=== PATIENT | female | born 1975 | race Caucasian/White ===

== ENCOUNTER 2017-10-06 17:35 | Emergency (ER) | payer BC, SELFPAY | END 2017-10-06 19:02 | disposition home or self-care (01) | PROVIDERS: Family Provider Physician Assistant | DX: G50.0 Trigeminal neuralgia (principal); Z88.2 Allergy status to sulfonamides; Z79.51 Long term (current) use of inhaled steroids; Z79.899 Other long term (current) drug therapy; Z86.73 Personal history of transient ischemic attack (TIA), and cerebral infarction without residual deficits | CPT/HCPCS: 99201 ==

== ENCOUNTER 2017-10-28 09:29 | Emergency (ER) | payer BC, SELFPAY ==
[2017-10-28 09:53] VITALS: BMI 25.0
[2017-10-28 10:08] VITALS: BP 107/73; PULSE 102; RESP 18; TEMP 36.9; O2SAT 97; BMI 55.0
[2017-10-28 10:08] LABS: UTC Influenza A Antigen Negative (Negative); UTC Influenza B Antigen Positive (Negative)
--- NOTE | 2017-10-28 10:26 | HMH.EDUTC ---
[facility] [place] Clinical Impression: Influenza B Disposition: Home, Self-Care Condition on Discharge: Good Instructions: Influenza Additional Instructions: Rest, fluids. Alternate Tylenol and Motrin as needed for fever. Referrals: Talisha Corbett PA [Primary Care Provider] - Time of Disposition: 10:30 Medical Decision Making Vital Signs: 10/28/17 10:08 Temperature 98.5 F Temperature Source Oral Pulse Rate [Left Brachial] 102 H Respiratory Rate 18 Blood Pressure [Right Arm] 107/73 Blood Pressure Mean [Right Arm] 84 Blood Pressure Source [Right Arm] Automatic Cuff Blood Pressure Position [Right Arm] Sitting 02 Sat by Pulse Oximetry 97 Oxygen Delivery Method Room Air - Lab Data Lab results reviewed: Yes: I reviewed the patient's lab results. Lab Results 10/28/17 10:00: Influenza Type A Ag Negative, Influenza Type B Ag Positive A - Bobby Inquiry Pt receiving controlled substance: No [facility] [place] - General Stated complaint: cough,ears hurting,davis Time Seen by Provider: 10/28/17 10:21 Mode of Arrival: Ambulatory Source of Information: Patient Limitations: No Limitations Description of Symptoms (Recalled from Triage Doc. by RN): Flu like symptoms, cough, runny nose, tired X 2 days. No vomiting or diarrhea. HEENT Symptoms (Recalled from RN notes): Yes (runny nose, drainage, headache) Resp Symptoms (Recalled from RN notes): Yes (cough) Skin Symptoms (Recalled from RN notes): No MS Symptoms (Recalled from RN notes): No Functional Status (Recalled from RN notes): na - Related Data Home Medications Medication Instructions Recorded Confirmed aspirin 81 mg tablet,delayed 81 mg PO QDAY 10/23/17 release atorvastatin 20 mg tablet 20 mg PO QDAY 10/23/17 puenrqcnap-pqwnmzgoahcwi-flcganrl 1 cap PO Q4H PRN cap 10/23/17 50 mg-300 mg-40 mg capsule fluticasone 50 mcg/actuation nasal 50 mcg INTRANASAL ONCE 10/23/17 spray,suspension levonorgestrel-ethinyl estradiol 1 tab PO QDAY 10/23/17 0.1 mg-20 mcg tablet montelukast 10 mg tablet 10 mg PO QHS 10/23/17 ondansetron 8 mg disintegrating 8 mg PO Q12H PRN 10/23/17 tablet pregabalin 75 mg capsule 75 mg PO BID 10/23/17 zolpidem 10 mg tablet 10 mg PO QHS PRN tab 10/23/17 Previous Rx's Medication Instructions Recorded Oseltamivir Phosphate [Tamiflu 75 mg PO BID 5 Days #10 cap 10/28/17 75mg Capsule] Promethazine/Dextromethorphan 5 ml PO Q6HP PRN 10 Days #180 syrup 10/28/17 [Promethazine-Dm Syrup] Allergies Allergy/AdvReac Type Severity Reaction Status Date / Time Sulfa (Sulfonamide Allergy Unknown Verified 10/28/17 09:55 Antibiotics) [SULFA (SULFONAMIDE ANTIBIOTICS)] - Worker's Comp Is this a Worker's Comp case?: No [facility] History Medical History: Denies:: Cancer, Diabetes Mellitus Type 1, Diabetes Mellitus Type 2, MRSA Comment: Possible stroke 08/2017 (versus Trigeminal neuralgia); B12 deficiency Other Surgeries: Yes: Appendectomy Amputation: No Fractures: No - *Social History Smoking Status: Never smoker Alcohol Intake: never Substance Use Type: denies use Occupational Status: employed Housing: house Household Members: family - Psychiatric History Expresses thoughts of harming self/others: None Suicide Plan Description: No Plan *Family Hx:: Anemia - Constitutional Reports body ache(s), Reports fever(s), Reports headache(s) - ENT Reports ear pain, Reports sore throat - Respiratory Reports chest congestion, Reports cough Physical Exam - General General appearance: alert, in no apparent distress - Head Head exam: atraumatic, normocephalic, normal inspection - Eye Eye exam: Present: normal appearance, PERRL, EOMI - ENT ENT exam: Present: normal exam, normal oropharynx, mucous membranes moist, TM's normal bilaterally, normal external ear exam - Neck Neck exam: Present: normal inspection, full ROM, trachea midline. Absent: meningismus, lymphadenopathy
--- NOTE | 2017-10-28 10:30 | ED_ITS ---
[facility] [place] Impression: Influenza B Disposition: Home, Self-Care Condition on Discharge: Good Instructions: Influenza Additional Instructions: Rest, fluids. Alternate Tylenol and Motrin as needed for fever. Referrals: Talisha Corbett PA [Primary Care Provider] - Time of Disposition: 10:30 Medical Decision Making Vital Signs: 10/28/17 10:08 Temperature 98.5 F Temperature Source Oral Pulse Rate [Left Brachial] 102 H Respiratory Rate 18 Blood Pressure [Right Arm] 107/73 Blood Pressure Mean [Right Arm] 84 Blood Pressure Source [Right Arm] Automatic Cuff Blood Pressure Position [Right Arm] Sitting 02 Sat by Pulse Oximetry 97 Oxygen Delivery Method Room Air - Lab Data Lab results reviewed: Yes: I reviewed the patient's lab results. Lab Results 10/28/17 10:00: Influenza Type A Ag Negative, Influenza Type B Ag Positive A - Bobby Inquiry Pt receiving controlled substance: No [facility] [place] - General Stated complaint: cough,ears hurting,davis Time Seen by Provider: 10/28/17 10:21 Mode of Arrival: Ambulatory Source of Information: Patient Limitations: No Limitations Description of Symptoms (Recalled from Triage Doc. by RN): Flu like symptoms, cough, runny nose, tired X 2 days. No vomiting or diarrhea. HEENT Symptoms (Recalled from RN notes): Yes (runny nose, drainage, headache) Resp Symptoms (Recalled from RN notes): Yes (cough) Skin Symptoms (Recalled from RN notes): No MS Symptoms (Recalled from RN notes): No Functional Status (Recalled from RN notes): na - Related Data Home Medications Medication Instructions Recorded Confirmed aspirin 81 mg tablet,delayed 81 mg PO QDAY 10/23/17 release atorvastatin 20 mg tablet 20 mg PO QDAY 10/23/17 pozwxltwry-uzkiprtarrieh-nqiqcstk 1 cap PO Q4H PRN cap 10/23/17 50 mg-300 mg-40 mg capsule fluticasone 50 mcg/actuation nasal 50 mcg INTRANASAL ONCE 10/23/17 spray,suspension levonorgestrel-ethinyl estradiol 1 tab PO QDAY 10/23/17 0.1 mg-20 mcg tablet montelukast 10 mg tablet 10 mg PO QHS 10/23/17 ondansetron 8 mg disintegrating 8 mg PO Q12H PRN 10/23/17 tablet pregabalin 75 mg capsule 75 mg PO BID 10/23/17 zolpidem 10 mg tablet 10 mg PO QHS PRN tab 10/23/17 Previous Rx's Medication Instructions Recorded Oseltamivir Phosphate [Tamiflu 75 mg PO BID 5 Days #10 cap 10/28/17 75mg Capsule] Promethazine/Dextromethorphan 5 ml PO Q6HP PRN 10 Days #180 syrup 10/28/17 [Promethazine-Dm Syrup] Allergies Allergy/AdvReac Type Severity Reaction Status Date / Time Sulfa (Sulfonamide Allergy Unknown Verified 10/28/17 09:55 Antibiotics) [SULFA (SULFONAMIDE ANTIBIOTICS)] - Worker's Comp Is this a Worker's Comp case?: No [facility] History Medical History: Denies:: Cancer, Diabetes Mellitus Type 1, Diabetes Mellitus Type 2, MRSA Comment: Possible stroke 08/2017 (versus Trigeminal neuralgia); B12 deficiency Other Surgeries: Yes: Appendectomy Amputation: No Fractures: No - *Social History Smoking Status: Never smoker Alcohol Intake: never Substance Use Type: denies use Occupational Status: employed Housing: house Household Members: family - Psych
== END 2017-10-28 10:34 | disposition home or self-care (01) ==
PROVIDERS: Emergency Provider Physician Assistant; Family Provider Physician Assistant; PCP Physician Assistant
DX: J11.1 Influenza due to unidentified influenza virus with other respiratory manifestations (principal); Z79.82 Long term (current) use of aspirin; Z88.2 Allergy status to sulfonamides; E53.9 Vitamin B deficiency, unspecified
CPT/HCPCS: 87276; 87804; 99202

== ENCOUNTER → 2017-11-06 12:42 | Outpatient (REF) | payer BC, SELFPAY ==
[2017-11-06 17:09] LABS: Basophils % 0.5 % (0.1-2.0); Eosinophils # 0.1 K/mm3 (0.0-0.4); Eosinophils % 1.1 % (0.1-12.0); Hematocrit 40.5 % (37.0-47.0); Lymphocytes # 1.7 K/mm3 (0.7-4.5); Mean Corpuscular Volume 96.7 fl (81-99); Mean Platelet Volume 8.8 fl (7.4-10.4); Monocytes # 0.5 K/mm3 (0.1-1.0); Monocytes % 6.5 % (1.7-9.3); Neutrophils # 4.8 K/mm3 (1.8-7.8); Neutrophils % 67.8 % (37.0-80.0); Platelet Count 382 K/mm3 (142-424); Red Blood Count 4.18 M/mm3 (4.20-5.40); Red Cell Distribution Width 12.7 % (11.5-17.5); White Blood Count 7.1 K/mm3 (4.8-10.8)
[2017-11-06 18:01] LABS: Alanine Aminotransferase 30 U/L (12-78); Albumin Level 3.9 gm/dL (3.4-5.0); Albumin/Globulin Ratio 1.4 (1.1-1.8); Alkaline Phosphatase 101 U/L (46-116); Anion Gap 12.1 mEq/L (5-15); Aspartate Amino Transferase 19 U/L (15-37); Bilirubin,Total 0.4 mg/dL (0.2-1.0); Blood Urea Nitrogen 11 mg/dL (7-18); Calcium 8.9 mg/dL (8.5-10.1); Carbon Dioxide 26 mmol/L (21.0-32.0); Chloride 106 mmol/L (98-107); Creatinine,Serum 0.76 mg/dL (0.55-1.02); Estimated Glomerular Filt Rate 83 ml/min (>60); Ferritin 125 ng/mL (8-388); GFR (African American) 101 ML/MIN (>60); Globulin 2.8 gm/dl (1.3-3.2); Glucose 85 mg/dL (74-106); Potassium 4.1 mmoL/L (3.5-5.1); Sodium 140 mmol/L (136-145); Thyroid Stimulating Hormone 0.96 uIU/ml (0.358-3.740); Total Protein,Serum 6.7 gm/dL (6.4-8.2)
[2017-11-08 08:21] LABS: Iron 135 ug/dL (27-159); Iron Saturation 41 % (15-55); UIBC 194 ug/dL (131-425)
[2017-11-08 12:16] LABS: Folate 9.9 ng/mL (>3.0); Vitamin B12 1334 pg/mL (232-1245); Vitamin D 25 Hydroxy 35.3 ng/mL (30.0-100.0)
== END ==
LOC: LAB 12:42
PROVIDERS: Visit Provider Physician Assistant
DX: R20.0 Anesthesia of skin (principal); R41.3 Other amnesia; G50.0 Trigeminal neuralgia; R53.1 Weakness; R13.10 Dysphagia, unspecified
CPT/HCPCS: 80053; 82607; 82652; 82728; 82746; 83550; 84443; 85025

== ENCOUNTER → 2019-05-19 13:41 | Outpatient (CLI) | payer BC, SELFPAY ==
[2019-05-19 14:00] LABS: Basophils % 0.6 % (0.1-2.0); Eosinophils # 0.1 K/mm3 (0.0-0.4); Eosinophils % 1.4 % (0.1-12.0); Hematocrit 40.7 % (37.0-47.0); Hemoglobin 12.8 g/dL (12.2-16.2); Lymphocytes # 1.7 K/mm3 (0.7-4.5); Lymphocytes % 25.2 % (10-50); Mean Corpuscular HGB Conc 31.5 g/dL (31.8-35.4); Mean Corpuscular Hemoglobin 31.9 pg (27.0-31.2); Mean Corpuscular Volume 101.4 fl (81-99); Monocytes # 0.5 K/mm3 (0.1-1.0); Monocytes % 7.6 % (1.7-9.3); Neutrophils # 4.5 K/mm3 (1.8-7.8); Neutrophils % 65.1 % (37.0-80.0); Platelet Count 371 K/mm3 (142-424); Red Blood Count 4.02 M/mm3 (4.20-5.40); Red Cell Distribution Width 12.8 % (11.5-17.5); White Blood Count 6.9 K/mm3 (4.8-10.8)
[2019-05-19 14:16] LABS: Alanine Aminotransferase 23 U/L (12-78); Albumin Level 3.7 gm/dL (3.4-5.0); Albumin/Globulin Ratio 1.2 (1.1-1.8); Alkaline Phosphatase 85 U/L (46-116); Anion Gap 12.8 mEq/L (5-15); Aspartate Amino Transferase 13 U/L (15-37); Bilirubin,Total 0.3 mg/dL (0.2-1.0); Blood Urea Nitrogen 12 mg/dL (7-18); Calcium 9.6 mg/dL (8.5-10.1); Carbon Dioxide 27 mmol/L (21.0-32.0); Chloride 105 mmol/L (98-107); Chol/HDL Ratio 3.2 (1-3.5); Cholesterol 168 mg/dL (140-200); Creatinine,Serum 0.73 mg/dL (0.55-1.02); Estimated Glomerular Filt Rate 87 ml/min (>60); Free T4 (Free Thyroxine) 0.91 ng/dl (0.76-1.46); GFR (African American) 105 ML/MIN (>60); Glucose 86 mg/dL (74-106); HDL Cholesterol 53 mg/dL (29-89); LDL Cholesterol 91 mg/dL (0-130); Potassium 3.8 mmoL/L (3.5-5.1); Sodium 141 mmol/L (136-145); Thyroid Stimulating Hormone 1.38 uIU/ml (0.358-3.740); Total Protein,Serum 6.7 gm/dL (6.4-8.2); Triglycerides 121 mg/dL (30-200); VLDL Cholesterol 24 mg/dL (0-40)
[2019-05-21 14:19] LABS: Vitamin B12 >2000 pg/mL (232-1245); Vitamin D 25 Hydroxy 42.7 ng/mL (30.0-100.0)
== END ==
PROVIDERS: Visit Provider Emergency Medicine
DX: R53.1 Weakness (principal)
CPT/HCPCS: 80053; 80061; 82607; 82652; 84439; 84443; 85025

== ENCOUNTER → 2019-06-04 16:07 | Outpatient (CLI) | payer BC, SELFPAY ==
[2019-06-06 16:10] LABS: Peripheral Smear Review Scanned Result
== END ==
PROVIDERS: Visit Provider Emergency Medicine
DX: R71.8 Other abnormality of red blood cells (principal)
CPT/HCPCS: 36415

== ENCOUNTER → 2019-06-30 12:25 | Outpatient (CLI) | payer OTHER, BC, SELFPAY ==
--- NOTE | 2019-06-30 12:28 | XR_ITS ---
PROCEDURE: XR SHOULDER RT MIN 2V CLINICAL INDICATION: Shoulder pain COMPARISON: No exams were available for comparison FINDINGS: No fracture, dislocation, lytic change, or blastic change evident. No significant degenerative change IMPRESSION: Negative right shoulder Dictated by: Timmy Leach MD 06/30/2019 13:02 Electronically signed by Timmy Leach MD in [place] 06/30/2019 13:02
--- NOTE | 2019-06-30 12:28 | XR_ITS ---
PROCEDURE: XR ELBOW RT MIN 3V CLINICAL INDICATION: ELbow pain COMPARISON: No exams were available for comparison FINDINGS: No fracture or dislocation. No lytic or blastic change. There is normal mineralization. The joint spaces are well-preserved. No significant degenerative/arthritic changes. No erosive changes evident. Other findings:None. IMPRESSION: No acute findings. Dictated by: Timmy Leach MD 06/30/2019 15:02 Electronically signed by Timmy Leach MD in [place] 06/30/2019 15:02
--- NOTE | 2019-06-30 14:10 | XR_ITS ---
PROCEDURE: XR SOFT TISSUE NECK CLINICAL INDICATION: Neck pain COMPARISON: No exams were available for comparison FINDINGS: There is degenerative disc disease at C5-C6 and C6-C7. Normal alignment. Mild cervical curvature convex right. No obvious fracture or dislocation. Straightening of cervical lordosis. IMPRESSION: Straightened cervical lordosis with mild cervical curvature convex right which could be due to patient position or muscle spasm. Degenerative disc disease at C5-C6 and C6-C7 Dictated by: Timmy Leach MD 06/30/2019 14:44 Electronically signed by Timmy Leach MD in [place] 06/30/2019 14:44
== END ==
PROVIDERS: PCP Family Medicine; Visit Provider Orthopaedic Surgery
DX: M25.521 Pain in right elbow (principal); M25.511 Pain in right shoulder; M54.2 Cervicalgia
CPT/HCPCS: 70360; 73030; 73080

== ENCOUNTER → 2019-07-14 07:52 | Outpatient (CLI) | payer BC, SELFPAY ==
--- NOTE | 2019-07-14 07:53 | MR_ITS ---
PROCEDURE: MR CERVICAL SPINE WO CON CLINICAL INDICATION: Neck Pain Neck pain, right shoulder and arm pain with numbness and tingling COMPARISON: No exams were available for comparison TECHNIQUE: Standard multiplanar multiecho sequences are performed without contrast. FINDINGS: There is straightening of the cervical lordosis. The cranial cervical junction has an unremarkable appearance. C2-C3: Unremarkable. C3-C4: Unremarkable. C4-C5: Unremarkable. C5-C6: There is mild degenerative disc disease with minimal bulging disc. There is minimal left foraminal disc protrusion at this area causing mild left lateral recess and foraminal narrowing. Borderline narrowing of the canal at 11 mm. There is mild right-sided foraminal narrowing as well at this level C6-C7: Mild degenerative disc disease with mild bulging disc which is eccentric toward the right causing moderate right-sided foraminal and mild right lateral recess narrowing. There is borderline narrowing of the canal at 11 mm C7-T1: Unremarkable. No extruded herniated disc are evident. IMPRESSION: C5-C6: There is mild degenerative disc disease with minimal bulging disc. There is minimal left foraminal disc protrusion at this area causing mild left lateral recess and foraminal narrowing. Borderline narrowing of the canal at 11 mm. There is mild right-sided foraminal narrowing as well at this level C6-C7: Mild degenerative disc disease with mild bulging disc which is eccentric toward the right causing moderate right-sided foraminal and mild right lateral recess narrowing. There is borderline narrowing of the canal at 11 mm No extruded herniated disc apparent. Dictated by: Timmy Leach MD 07/15/2019 11:03 Electronically signed by Timmy Leach MD in [place] 07/15/2019 11:03
== END ==
PROVIDERS: PCP Family Medicine; Visit Provider Orthopaedic Surgery
DX: M54.2 Cervicalgia (principal)
CPT/HCPCS: 72141; 76376

== ENCOUNTER → 2020-01-12 10:25 | Outpatient (CLI) | payer BC, SELFPAY ==
--- NOTE | 2020-01-12 10:32 | XR_ITS ---
PROCEDURE: XR FOOT WT BEARING LT 3V CLINICAL INDICATION: bunion pain COMPARISON: FTR3 FOOT-RT-3 VIEWS from 09/01/2014 XR FOOT WT BEARING RT 3V from 01/12/2020 FINDINGS: No fracture or dislocation. No lytic or blastic change. There is normal mineralization. There is mild hallux valgus with mild bunion formation and osteoarthritis of the 1st MTP. No fracture or dislocation. No lytic or blastic change. A well-circumscribed lucency is present in the mid to anterior aspect of the calcaneus. This measures 1.7 cm consistent with an intraosseous lipoma. Other findings:None. IMPRESSION: 1. Mild hallux valgus with bunion formation and osteoarthritis of the 1st MTP 2. Incidental intraosseous lipoma of the calcaneus Dictated by: Timmy Leach MD 01/12/2020 11:04 Electronically signed by Timmy Leach MD in [place] 01/12/2020 11:04
--- NOTE | 2020-01-12 10:32 | XR_ITS ---
PROCEDURE: XR FOOT WT BEARING RT 3V CLINICAL INDICATION: bunion pain COMPARISON: FTR3 FOOT-RT-3 VIEWS from 09/01/2014 FINDINGS: Hallux valgus with osteoarthritis and bunion formation at the 1st MTP no other significant anomalies are evident. The joint spaces are well-preserved. No significant degenerative/arthritic changes. No erosive changes evident. Other findings:None. IMPRESSION: Hallux valgus with osteoarthritis and bunion formation at the 1st MTP which has progressed since 09/01/2014 Dictated by: Timmy Leach MD 01/12/2020 11:00 Electronically signed by Timmy Leach MD in [place] 01/12/2020 11:00
== END ==
PROVIDERS: PCP Emergency Medicine; Visit Provider Podiatrist
DX: M79.672 Pain in left foot (principal); M79.671 Pain in right foot
CPT/HCPCS: 73630

== ENCOUNTER → 2020-07-28 19:39 | Outpatient (CLI) | payer BC, SELFPAY ==
[2020-07-28 19:56] LABS: Basophils # 0.1 K/mm3 (0-0.2); Basophils % 0.9 % (0.1-2.0); Eosinophils # 0.2 K/mm3 (0.0-0.4); Eosinophils % 2.6 % (0.1-12.0); Hematocrit 45.6 % (37.0-47.0); Hemoglobin 14.8 g/dL (12.2-16.2); Lymphocytes # 2.3 K/mm3 (0.7-4.5); Lymphocytes % 27.5 % (10-50); Mean Corpuscular HGB Conc 32.5 g/dL (31.8-35.4); Mean Corpuscular Hemoglobin 32.6 pg (27.0-31.2); Mean Corpuscular Volume 100.4 fl (81-99); Mean Platelet Volume 7.6 fl (7.4-10.4); Monocytes # 0.5 K/mm3 (0.1-1.0); Monocytes % 6.3 % (1.7-9.3); Neutrophils # 5.3 K/mm3 (1.8-7.8); Neutrophils % 62.7 % (37.0-80.0); Platelet Count 429 K/mm3 (142-424); Red Blood Count 4.54 M/mm3 (4.20-5.40); Red Cell Distribution Width 12.4 % (11.5-17.5); White Blood Count 8.4 K/mm3 (4.8-10.8)
[2020-07-28 20:06] LABS: Chloride 102 mmol/L (98-107); Sodium 138 mmol/L (136-145)
[2020-07-28 20:07] LABS: Potassium 4.2 mmoL/L (3.5-5.1)
[2020-07-28 20:09] LABS: Alanine Aminotransferase 33 U/L (12-78); Albumin Level 4.7 g/dl (3.5-5.0); Albumin/Globulin Ratio 1.7 (1.1-1.8); Alkaline Phosphatase 108 U/L (38-126); Anion Gap 14.2 mEq/L (5-15); Aspartate Amino Transferase 36 U/L (14-36); Bilirubin,Total 0.5 mg/dl (0.2-1.3); Blood Urea Nitrogen 10 mg/dl (7-17); Carbon Dioxide 26 mmol/L (22.0-30.0); Estimated Glomerular Filt Rate 90 ml/min (>60); GFR (African American) 109 ML/MIN (>60); Globulin 2.8 g/dL (1.3-3.2); Total Protein,Serum 7.5 g/dl (6.3-8.2)
[2020-07-28 20:10] LABS: Calcium 10.1 mg/dl (8.4-10.2); Chol/HDL Ratio 3.8 (1-3.5); Cholesterol 216 mg/dl (140-200); Glucose 93 mg/dl (74-100); HDL Cholesterol 57 mg/dl (40-60); Triglycerides 262 mg/dl (30-150); VLDL Cholesterol 52 mg/dL (0-40)
[2020-07-28 20:22] LABS: Direct LDL Cholesterol 130.69 mg/dL (100-129)
[2020-07-28 20:27] LABS: T4 (Thyroxine) 7.9 ug/dl (5.53-11.0)
[2020-07-28 20:40] LABS: Thyroid Stimulating Hormone 1.67 uIU/mL (0.465-4.68)
== END ==
PROVIDERS: Visit Provider Nurse Practitioner Family
DX: Z00.00 Encounter for general adult medical examination without abnormal findings (principal); R53.83 Other fatigue; R82.90 Unspecified abnormal findings in urine; E78.5 Hyperlipidemia, unspecified; Z79.899 Other long term (current) drug therapy
CPT/HCPCS: 80053; 80061; 84436; 84443; 85025; 87086

== ENCOUNTER → 2020-08-06 19:11 | Outpatient (CLI) | payer BC, SELFPAY ==
[2020-08-06 19:53] LABS: 25-OH Vitamin D, Total 78.7 ng/mL (30-100)
[2020-08-06 20:55] LABS: Vitamin B12 > 1000 pg/mL (239-931)
== END ==
PROVIDERS: Visit Provider Nurse Practitioner Family
DX: R53.83 Other fatigue (principal)
CPT/HCPCS: 82306; 82607

== ENCOUNTER → 2021-03-28 18:21 | Outpatient (CLI) | payer BC, SELFPAY | PROVIDERS: Visit Provider Nurse Practitioner | DX: M71.30 Other bursal cyst, unspecified site (principal) | CPT/HCPCS: 87070; 87077; 87186; 87205 ==

== ENCOUNTER → 2021-05-23 13:29 | Outpatient (CLI) | payer BC, SELFPAY ==
--- NOTE | 2021-05-23 13:36 | XR_ITS ---
PROCEDURE: XR ACUTE ABDOMEN SERIES CLINICAL INDICATION: Abd pain COMPARISON: No exams were available for comparison FINDINGS: Frontal view of the chest shows no acute finding. Upright and supine views of the abdomen demonstrates a moderate amount of retained colonic feces with a few air-fluid levels within the colon. There is an IUD in place. Other findings:None. IMPRESSION: Moderate amount of retained colonic feces Dictated by: Timmy Leach MD 05/23/2021 15:38 Timmy Leach MD in [place] 05/23/2021 15:38
== END ==
PROVIDERS: PCP Emergency Medicine; Visit Provider Nurse Practitioner Family
DX: R10.9 Unspecified abdominal pain (principal)
CPT/HCPCS: 74021

== ENCOUNTER 2021-06-12 13:33 | Emergency (ER) | payer BC, SELFPAY ==
[2021-06-12 15:10] VITALS: BP 117/80; PULSE 105; RESP 19; TEMP 36.7; O2SAT 98; BMI 28.9
--- NOTE | 2021-06-12 15:36 | HMH.EDUTC ---
[facility] – [place] Disposition Clinical Impression: COVID-19 virus test result unknown Disposition: Home, Self-Care Condition on Discharge: Good Instructions: COVID-19: Testing and Tracing Additional Instructions: No sign of a bacterial infection. Likely viral. Viruses can take 7-14 days to run their course. Nasal saline and bulb syringe or nose Macy to remove nasal drainage to help with nasal congestion. Hard to eat, drink, sleep with nasal congestion so important to keep this cleaned out. Monitor temp. Tylenol or Motrin as needed for pain or fever Encourage fluids, water, Gatorade, Powerade, Pedialyte if /toddler/child Warm salt water gargles Warm fluids Sore throat lozenges Sleep elevated Humidifier/vaporizer Follow-up immediately for new or worsening symptoms or no noticeable improvement over the next 48-72 hours. covid swab was sent to lab, call later today for results. self isolate until test results are known to be negative Referrals: Leroy Vega MD [Primary Care Provider] - Time of Disposition: 15:40 Medical Decision Making - Bobby Inquiry Pt receiving controlled substance: No Orders (Tests/Meds): ORDERS Category Date Time Status Covid-19 Nasal PCR ([facility]) Routine Lab 06/12/21 15:10 Received [facility] [place] HPI - General Chief complaint: [facility] Stated complaint: covid test Time Seen by Provider: 06/12/21 15:36 Mode of Arrival: Ambulatory Source of Information: Patient Limitations: No Limitations - History of Present Illness Provider Complaint: 45 yr old female presents for covid test. pt states she took otc covid test it was postive. pt states she has lost taste and nasal cngestion with body aches - Related Data Home Medications Medication Instructions Recorded Confirmed aspirin 81 mg tablet,delayed 81 mg PO QDAY 10/23/17 05/19/21 release cholecalciferol (vitamin D3) 250 500 mcg PO DAILY cap 01/12/20 05/19/21 mcg (10,000 unit) capsule cyanocobalamin (vitamin B-12) 10,000 mcg SUBLINGUAL DAILY tab 01/12/20 05/19/21 1,000 mcg sublingual tablet Previous Rx's Medication Instructions Recorded dicyclomine 20 mg tablet 20 mg PO TID #90 tab 07/28/20 loratadine 10 mg disintegrating 10 mg PO DAILY #30 tab 07/28/20 tablet fluticasone propionate 50 1 spray INTRANASAL DAILY #9.9 ml 09/08/20 mcg/actuation nasal spray,suspension quetiapine 50 mg tablet,extended 100 mg PO HS 90 Days #180 tab 02/16/21 release 24 hr metoclopramide HCl 5 mg tablet 5 mg PO QAC #90 tab 05/19/21 venlafaxine 37.5 mg 37.5 mg PO DAILY #30 cap 05/19/21 capsule,extended release 24 hr montelukast 10 mg tablet See Rx Instructions .ROUTE 05/25/21 .COMPLEX #90 tab sumatriptan succinate 100 mg tablet See Rx Instructions .ROUTE 05/30/21 .COMPLEX #9 tab Allergies Allergy/AdvReac Type Severity Reaction Status Date / Time carbamazepine Allergy Mild rash Verified 05/19/21 15:50 gabapentin Allergy Mild Verified 05/19/21 15:50 Sulfa (Sulfonamide Allergy Unknown Verified 05/19/21 15:50 Antibiotics) [SULFA (SULFONAMIDE ANTIBIOTICS)] [facility] History - Hepatitis A Screen Attestation statement:: This patient has been screened for Hepatitis A risk factors. I have reviewed the patient's past medical history: Yes Medical History: Reports:: Cerebrovascular Accident, Hyperlipidemia, Migraine Denies:: Cancer, Diabetes Mellitus Type 1, Diabetes Mellitus Type 2, MRSA Other Medical History: Reports: Anemia Comment: History of stroke Other Surgeries: Yes: No Previous Surgery, Appendectomy, Cholecystectomy Amputation: No Fractures: No Comment: Gallbladder - Social History Smoking Status: Never smoker Alcohol Intake: never Substance Use Type: denies use Occupational Status: employed Housing: house Household Members: family Family Hx:: Diabetes, Stroke ROS Obtained: Yes Systems reviewed as appropriate & no additional complaints - Constitutional Constitutional: Reports syste
[2021-06-12 15:40] VITALS: BP 117/80; PULSE 105; RESP 19; TEMP 36.7; O2SAT 98
--- NOTE | 2021-06-12 22:35 | PC.NURSE ---
ATTEMPTED TO CALL PT ABOUT COVID TEST RESULTS, WENT STRAIGHT TO [employer] THAT SAID IT WAS FULL
--- NOTE | 2021-06-13 09:39 | PC.NURSE ---
Notified pt of positive results
== END 2021-06-12 15:46 | disposition home or self-care (01) ==
PROVIDERS: Emergency Provider Nurse Practitioner Family; PCP Emergency Medicine
DX: U07.1 COVID-19 (principal); E78.5 Hyperlipidemia, unspecified; Z88.2 Allergy status to sulfonamides
CPT/HCPCS: 99202; G0463; U0003

== ENCOUNTER → 2021-09-17 12:18 | Outpatient (CLI) | payer BC, SELFPAY | PROVIDERS: PCP Emergency Medicine; Visit Provider Nurse Practitioner | DX: Z20.822 Contact with and (suspected) exposure to COVID-19 (principal) | CPT/HCPCS: C9803; U0003; U0005 ==

== ENCOUNTER → 2022-05-05 14:21 | Outpatient (CLI) | payer BC, SELFPAY ==
[2022-05-05 13:24] LABS: Basophils # 0.1 K/mm3 (0-0.2); Basophils % 1.8 % (0.1-2.0); Eosinophils # 0.2 K/mm3 (0.0-0.4); Eosinophils % 2.8 % (0.1-12.0); Hematocrit 43.9 % (37.0-47.0); Hemoglobin 13.9 g/dL (12.2-16.2); Lymphocytes # 1.7 K/mm3 (0.7-4.5); Lymphocytes % 26.8 % (10-50); Mean Corpuscular HGB Conc 31.6 g/dL (31.8-35.4); Mean Corpuscular Hemoglobin 32.4 pg (27.0-31.2); Mean Corpuscular Volume 102.3 fl (81-99); Monocytes # 0.5 K/mm3 (0.1-1.0); Monocytes % 8.3 % (1.7-9.3); Neutrophils # 3.9 K/mm3 (1.8-7.8); Neutrophils % 60.3 % (37.0-80.0); Platelet Count 409 K/mm3 (142-424); Red Blood Count 4.29 M/mm3 (4.20-5.40); Red Cell Distribution Width 13.1 % (11.5-17.5); White Blood Count 6.5 K/mm3 (4.8-10.8)
[2022-05-05 13:29] LABS: Alanine Aminotransferase 24 U/L (12-78); Albumin Level 4.1 g/dl (3.5-5.0); Albumin/Globulin Ratio 1.6 (1.1-1.8); Alkaline Phosphatase 97 U/L (38-126); Anion Gap 11.1 mEq/L (5-15); Aspartate Amino Transferase 29 U/L (14-36); Bilirubin,Total 0.2 mg/dl (0.2-1.3); Blood Urea Nitrogen 9 mg/dl (7-17); Calcium 9.2 mg/dl (8.4-10.2); Carbon Dioxide 24 mmol/L (22.0-30.0); Chloride 107 mmol/L (98-107); Chol/HDL Ratio 3.3 (1-3.5); Cholesterol 172 mg/dl (140-200); Estimated Glomerular Filt Rate 107 ml/min (>60); GFR (African American) 130 ML/MIN (>60); Globulin 2.6 g/dL (1.3-3.2); Glucose 95 mg/dl (74-100); HDL Cholesterol 52 mg/dl (40-60); Potassium 4.1 mmoL/L (3.5-5.1); Sodium 138 mmol/L (136-145); Total Protein,Serum 6.7 g/dl (6.3-8.2); Triglycerides 96 mg/dl (30-150); VLDL Cholesterol 19 mg/dL (0-40)
[2022-05-05 13:40] LABS: Direct LDL Cholesterol 100.14 mg/dL (100-129)
[2022-05-05 13:46] LABS: T4 (Thyroxine) 9.2 ug/dl (5.53-11.0)
[2022-05-05 14:00] LABS: Thyroid Stimulating Hormone 0.72 uIU/mL (0.465-4.68)
[2022-05-05 14:55] LABS: Vitamin B12 > 1000 pg/mL (239-931)
== END ==
PROVIDERS: PCP Nurse Practitioner Family; Visit Provider Nurse Practitioner Family
DX: R53.83 Other fatigue (principal); D51.0 Vitamin B12 deficiency anemia due to intrinsic factor deficiency; E53.8 Deficiency of other specified B group vitamins; E66.3 Overweight; Z68.29 Body mass index [BMI] 29.0-29.9, adult
CPT/HCPCS: 80053; 80061; 82306; 82607; 82746; 84436; 84443; 85025

== ENCOUNTER → 2022-09-21 12:39 | Outpatient (CLI) | payer BC, SELFPAY ==
--- NOTE | 2022-09-21 13:17 | MM_ITS ---
PROCEDURE INFORMATION: Exam: MG Bilateral Diagnostic Breast Tomosynthesis Exam date and time: 09/21/2022 1:14 PM Age: 47 years old Clinical indication: Patient recalled on the basis of a screening mammogram for further evaluation; Bilateral recalled basis of screening mammogram 09/09/2022 for possible mass in the upper outer quadrant of the right breast posteriorly and asymmetry posteriorly laterally on the left CC view. TECHNIQUE: Imaging protocol: Bilateral Diagnostic tomosynthesis and 2D mammography including computer-aided detection (CAD) when performed. Unilateral or bilateral exam. COMPARISON: 1. MG MAMMO SCREENING DIGITAL TOMOSYNTHESIS BILATERAL W CAD 09/09/2022 2:45 PM 2. MG MAMMO SCREENING DIGITAL TOMOSYNTHESIS BILATERAL W CAD 10/29/2020 3:57 PM 3. MG MAMMO SCREENING DIGITAL TOMOSYNTHESIS BILATERAL W CAD 07/08/2018 11:48 AM FINDINGS: MAMMOGRAPHY: Spot compression in the right upper outer quadrant suggest a possible 1.0 cm mass/asymmetry in the upper breast, MLO view only, posterior 3rd. Spot compression in the left CC lateral posteriorly demonstrates no mass or asymmetry. IMPRESSION: Possible mass/asymmetry in the upper outer outer right breast and no persistent asymmetry in the posterolateral left CC. Patient to be recalled for bilateral sonography in the right upper outer quadrant and left lateral breast. ASSESSMENT: BI-RADS Category 0: Incomplete- Need Additional Imaging Evaluation and/or Prior Mammograms for Comparison
== END ==
PROVIDERS: PCP Nurse Practitioner Family; Visit Provider Obstetrics & Gynecology
DX: R92.8 Other abnormal and inconclusive findings on diagnostic imaging of breast (principal)
CPT/HCPCS: 77062; 77066; G0279

== ENCOUNTER 2024-08-06 08:12 | Outpatient (CLI) | payer BC, SELFPAY ==
[2024-08-06 08:37] LABS: Basophils # 0.1 K/mm3 (0-0.2); Eosinophils # 0.1 K/mm3 (0.0-0.4); Eosinophils % 1.6 % (0.1-12.0); Hematocrit 39.7 % (37.0-47.0); Hemoglobin 13.2 g/dL (12.2-16.2); Lymphocytes # 1.8 K/mm3 (0.7-4.5); Lymphocytes % 29.3 % (10-50); Mean Corpuscular HGB Conc 33.4 g/dL (31.8-35.4); Mean Corpuscular Hemoglobin 32.1 pg (27.0-31.2); Mean Corpuscular Volume 96.3 fl (81-99); Mean Platelet Volume 7.3 fl (7.4-10.4); Monocytes # 0.4 K/mm3 (0.1-1.0); Monocytes % 6.9 % (1.7-9.3); Neutrophils # 3.7 K/mm3 (1.8-7.8); Neutrophils % 61.2 % (37.0-80.0); Platelet Count 333 K/mm3 (142-424); Red Blood Count 4.12 M/mm3 (4.20-5.40); Red Cell Distribution Width 13.3 % (11.5-17.5); White Blood Count 6.1 K/mm3 (4.8-10.8)
[2024-08-06 08:53] LABS: Albumin Level 4.3 g/dl (3.5-5.0); Chloride 109 mmol/L (98-107); Potassium 3.6 mmoL/L (3.5-5.1); Sodium 140 mmol/L (136-145)
[2024-08-06 08:55] LABS: Blood Urea Nitrogen 11 mg/dl (7-17); Estimated Glomerular Filt Rate 89 ml/min (>60); GFR (African American) 107 ML/MIN (>60)
[2024-08-06 08:56] LABS: Alanine Aminotransferase 16 U/L (12-78); Alkaline Phosphatase 62 U/L (38-126); Anion Gap 10.6 mEq/L (5-15); Aspartate Amino Transferase 17 U/L (14-36); Bilirubin,Total 0.6 mg/dl (0.2-1.3); Calcium 9.6 mg/dl (8.4-10.2); Carbon Dioxide 24 mmol/L (22.0-30.0); Chol/HDL Ratio 3.2 (1-3.5); Cholesterol 154 mg/dl (140-200); Globulin 2.2 g/dL (1.3-3.2); Glucose 88 mg/dl (74-100); HDL Cholesterol 48 mg/dl (40-60); Total Protein,Serum 6.5 g/dl (6.3-8.2); Triglycerides 71 mg/dl (30-150); VLDL Cholesterol 14 mg/dL (0-40)
[2024-08-06 09:08] LABS: Direct LDL Cholesterol 80.27 mg/dL (100-129)
[2024-08-06 09:13] LABS: 25-OH Vitamin D, Total 105 ng/mL (30-100)
[2024-08-06 09:26] LABS: Thyroid Stimulating Hormone 1.59 uIU/mL (0.465-4.68)
[2024-08-06 09:47] LABS: Vitamin B12 > 1000 pg/mL (239-931)
== END 2024-08-06 23:59 | disposition home or self-care (01) ==
LOC: LAB 08:13
PROVIDERS: PCP Nurse Practitioner Family; Visit Provider Nurse Practitioner Family
DX: R41.3 Other amnesia (principal); R53.1 Weakness; R13.10 Dysphagia, unspecified
CPT/HCPCS: 36415; 80050; 80053; 80061; 82306; 82607; 84443; 85025

== ENCOUNTER 2025-07-26 12:05 | Outpatient (CLI) | payer BC, SELFPAY ==
--- OUTSIDE RECORDS SUMMARY | 2025-07-27 12:08 | XMS_ITS | Clinical Summary ---
[facility] Address [address] [place] [address] Care Team Providers Care Integration Aide Name Role Phone Jr Shakeel Lewis APRN Primary Care Prov ider Allergies Active Allergy Reactions Criticality Noted Date Comments Carbamazepine Rash Low 04/19/2018 Gabapentin Rash Low 04/19/2018 Oxcarbazepine Rash Low Sulfa Antibiotics Rash Low 02/22/2017 Medications montelukast (SINGULAIR) 10 MG tablet Take 1 tablet by mouth Daily. Active butalbital-acet aminophen-caffe ine (FIORICET, ESGIC) 50-325-40 MG per tablet Take 1 tablet by mouth Every 6 (Six) Hours As Needed for Headache. 15 tablet 7 Active aspirin 81 MG EC tablet Take 1 tablet by mouth 2 (Two) Times a Day. Active Multiple Vitamins-Minera ls (MULTIVITAL PO) Take 1 tablet by mouth Daily. Active SUMAtriptan (IMITREX) 100 MG tablet 1 Active Cyanocobalamin (VITAMIN B 12 PO) Take by mouth. sublingual Active Hospital, Clinic, or Other Facility Administered Medication Ordered Dose Route Frequency Start Date End Date Status Levonorgestrel (MIRENA) 20 MCG/DAY IUD intrauterine device 1 eachIndications:Encounter for IUD insertion 1 each IU Once 08/01/2022 Active Active Problems Problem Noted Date Diagnosed Date B12 deficiency 04/19/2018 Neuropathy 04/19/2018 Family History Medical History Relation Name Comments Stroke Maternal Grandfather Pap[place] Melanoma Maternal Uncle Uncle Lung cancer Paternal Grandmother Breast cancer Neg Hx Colon cancer Neg Hx Ovarian cancer Neg Hx Uterine cancer Neg Hx Relation Name Status Comments Maternal Grandfather [place] Maternal Uncle Uncle Paternal Grandmother Social History Tobacco Use Types Packs/Day Years Used Date Smoking Tobacco: Never Smokeless Tobacco: Never Alcohol Use Standard Drinks/Week Comments Yes 2 (1 standard drink = 0.6 oz pur e alcohol) OCCASIONALLY Comments No Sex and Gender Information Value Date Recorded Sex Assigned at Not on file Legal Sex Female 12:05 PM EDT Gender Identity Not on file Sexual Orientation Not on file Last Filed Vital Signs Vital Sign Reading Time Taken Comments Blood Pressure 100/70 08/07/2024 3:58 PM EDT Pulse 72 04/19/2018 9:26 AM EDT Temperature 36.6 C (97.8 F) 04/19/2018 9:26 AM EDT Respiratory Rate 16 04/19/2018 9:26 AM EDT Oxygen Saturation 95% 02/22/2017 9:45 AM EDT Inhaled Oxygen Concentration - - Weight 56.2 kg (124 lb) 08/07/2024 3:58 PM EDT Height 157.5 cm (5' 2 ) 08/07/2024 3:58 PM EDT Body Mass Index 22.68 08/07/2024 3:58 PM EDT Plan of Treatment Upcoming Encounters Date Type Department Care Team (Late st Contact Info) Description 09/11/2025 8:30 AM EST Office Visit [facility] [address] [phone] Nirali Love MD [address] [id number] Health Maintenance Due Date Last Done Comments TDAP/TD VACCINES (1 - Tdap) 1993 HEPATITIS C SCREENING 02/22/2017 COLOGUARD 2019 COLON CANCER SCREENING 5 YEA R SIGMOIDOSCOPY 2019 COLONOSCOPY 2019 [address]AL CANCER SCREENING 2019 CT COLONOGRAPHY 2019 FECAL OCCULT BLOOD TEST 2019 FIT Testing (1 year) 2019 ANNUAL PHYSICAL 06/22/2021 06/22/2020 Pneumococcal Vaccine 50+ (1 of 1 - PCV) 2024 ZOSTER VACCINE (1 of 2) 2024 INFLUENZA VACCINE 05/22/2025 PAP SMEAR 08/07/2025 08/07/2024, 07/22, 08/01/2022, Additional history exists Annual Gynecologic Pelvic an d Breast Exam 08/08/2025 08/07/2024, 07/28/2021 MAMMOGRAM 09/19/2026 09/19/2024, 08/23, 06/27/2023, Additional history exists Procedures Procedure Name Priority Date/Time Associated Diagnosis Comments MAMMO SCREENING DIGITAL TOMOSYNTHESIS BILATERAL W CAD Routine 09/17/2024 9:13 AM EST Women's annual routine gynecological examination LIQUID-BASED PAP SMEAR WITH HPV GENOTYPING IF ASCUS, [facility] ([facility]) Routine 08/07/2024 5:13 PM EDT Pap test, as part of routine gynecological examination SCANNED - PAP SMEAR 07/28/2021 from Last 3 Months or Most Recently Relevant to Health Maintenance Results * Mammo Screening Digital Tomosynthesis Bilateral With CAD (09/17/2024 9:13 AM EST) Anatomical Region Laterality Modality Breast N/A Mammography 09/19/2024 2:12 PM EST Impressions 09/19/2024 2:15 PM EST Negative bilateral mammogram. RECOMMENDATION: Continue annual screening mammography. BI-RADS CATEGORY 1, NEGATIVE. CAD was utilized. The standard false-negative rate of mammography is between 10% and 25%. Complex patterns or increased breast density will markedly elevate the false-negative rate of mammography. A letter, in lay terminology, with the results of this exam will be mailed to the patient. This report was finalized on 09/19/2024 2:[address] Alfa Wesley MD. Narrative 09/19/2024 2:15 PM EST DIGITAL SCREENING MAMMOGRAM WITH TOMOSYNTHESIS HISTORY: Screening Mammography. Low dose full field digital breast tomosynthesis imaging was performed with 2D and 3D acquisitions consisting of bilateral CC and MLO views. Examination is compared to prior examination dating back to 07/08/2018. Examination is read in conjunction with computer aided detection. FINDINGS: The breast tissue is heterogeneously dense, which may obscure small masses. No suspicious masses, microcalcifications or areas of architectural distortion are present. Nirali Love MD IMG MAMMOGRAPHY ORDERABLES Antonella l Result * LIQUID-BASED PAP SMEAR WITH HPV GENOTYPING IF ASCUS ([facility]) (08/07/2024 5:13 PM EDT) Reference Lab Report [facility] [address] [place] [address] or [phone] Zoran Goode M.D., Clearance Representative PATIENT NAME [facility] JAROD DASILVA [id number] AGE SEX SSN CLIENT REF # [id number] [id number] F [id number] [id number] REQUESTING M.D. [place] [address] NIRALI LOVE DATE COLLECTED DATE RECEIVED DATE REPORTED 08/07/2024 08/07/2024 08/08/2024 ThinPrep Pap with Cytyc Imaging DIAGNOSIS: Negative for intraepithelial lesion or malignancy Multiple factors can influence accuracy of Pap tests; therefore, screening at regular intervals is necessary for early cancer detection. SPECIMEN ADEQUACY: SATISFACTORY FOR EVALUATION Transformation zone is present. SOURCE OF SPECIMEN: CERVICAL/ENDOCERV ICAL SLIDES: 1 CLINICAL HISTORY: Pap test, as part of routine gynecological examination, IUD DENTAL PATIENT COORDINATOR: NANI LUBIN(ASCP) CPT CODES: [id number] 08/08/2024 4:12 PM EDT [facility] ThinPrep Vial Cervix uteri structure / Unknown Collection / Unknown 08/07/2024 5:13 PM EDT 08/07/2024 5:13 PM EDT Nirali Love MD PATHOLOGY/CYTOLOGY ORDERABLES F inal Result [facility]
[address] [place] [address], [place] [phone] * SCANNED - PAP SMEAR (07/28/2021) Nirali Love MD CHART REVIEW TABS Final Resu lt from Last 3 Months or Most Recently Relevant to Health Maintenance Insurance [employer] Care Teams Integration Aide Relationship Specialty Start Date End Date Jr Shakeel Lewis APRN [address] [place] [address] PCP - General Nurse Practitioner 09/17/24
--- OUTSIDE RECORDS SUMMARY | 2025-07-27 12:08 | XMS_ITS | Clinical Summary ---
Author Organization Healthcare Address [address] [place] [address] Care Team Providers Care Corrugator Helper Name Role Phone Ryan Mccormick NEWS LIBRARY DIRECTOR Primary Care Provider [phone] Family History Medical History Relation Name Comments Other cancer Other 1 Migraines Other 2 Relation Name Status Comments Other 1 Other 2 Social History Tobacco Use Types Packs/Day Years Used Date Smoking Tobacco: Never Comments Unknown Sex and Gender Information Value Date Recorded Sex Assigned at Not on file Legal Sex Female 7:43 PM EDT Gender Identity Not on file Sexual Orientation Not on file Last Filed Vital Signs Vital Sign Reading Time Taken Comments Blood Pressure - - Pulse - - Temperature - - Respiratory Rate - - Oxygen Saturation - - Inhaled Oxygen Concentration - - Weight 65.9 kg (145 lb 4.5 oz) 09/05/2017 8:07 A M EST Height 157.5 cm (5' 2 ) 09/05/2017 8:07 AM EST Body Mass Index 26.57 09/05/2017 8:07 AM EST Plan of Treatment Not on file Care Teams Corrugator Helper Relationship Specialty Start Date End Date Ryan Mccormick APRN [address] [place], [place] [id number] PCP - General 03/04/21
== END 2025-07-26 23:59 ==
LOC: LAB.DROPOF 07-27 12:06
PROVIDERS: PCP Student in an Organized Health Care Education/Training Program; Visit Provider Student in an Organized Health Care Education/Training Program
DX: N39.0 Urinary tract infection, site not specified (principal)
CPT/HCPCS: 87086